=== PATIENT | female | born 1985 | race African-American/Black ===

== ENCOUNTER 2021-09-13 23:35 | Emergency (ER) | payer MEDICAID, OTHER ==
[~2021-09-13] VITALS: Ht 177.8 cm; Wt 100.0 kg
[~2021-09-13 23:35] MED LIST: FERR-43 PO; PREN-55 PO
[2021-09-14] MEDS ORDERED: DIPHENHYDRAMINE 50MG/ML VIAL IM ONE ×2 (03:15→03:30)
[2021-09-14] MEDS ORDERED: LORAZEPAM 2MG/ML CPJ IM ONE (03:15)
[2021-09-14] MEDS ORDERED: HALOPERIDOL LACTATE 5MG/ML VIAL IM ONE ×2 (03:15→03:30)
[2021-09-14 05:24] LABS: BASOPHILS % 0.9 % (0.0-2.0); EOSINOPHILS % 0.5 % (0.0-5.0); HEMOGLOBIN. 11.1 g/dL (12.0-16.0); LYMPHOCYTES % 20.8 % (20.0-50.0); MEAN CORPUSCULAR HEMOGLOBIN 22.8 pg (28.0-32.0); MEAN CORPUSCULAR VOLUME 73.9 fL (81.0-99.0); MEAN PLATELET VOLUME 8.1 fl (7.4-10.4); MONOCYTES % 9.8 % (2.0-8.0); PLATELET 345 x1000/uL (130-400); RED BLOOD CELL COUNT 4.86 mill/uL (4.2-5.4); RED CELL DISTRIBUTION WIDTH 21.7 % (11.6-14.6)
[2021-09-14 05:28] LABS: CHLORIDE 109 mEq/L (98-107)
[2021-09-14 05:35] LABS: ETHANOL BLOOD < 10 mg/dL
[2021-09-14 05:48] LABS: HCG SCREEN NEGATIVE
[2021-09-14 06:50] LABS: CLARITY URINE CLEAR (CLEAR); COLOR URINE DARK YELLOW (YELLOW); KETONES URINE 3+ (NEGATIVE); LEUKOCYTE ESTERASE URINE 2+ (NEGATIVE); NITRITE URINE NEGATIVE (NEGATIVE); OCCULT BLOOD URINE 2+ (NEGATIVE); PH URINE 5.5 (4.5-8.0); PROTEIN URINE 1+ (NEGATIVE); SPECIFIC GRAVITY URINE 1.026 (1.005-1.030)
[2021-09-14 07:12] LABS: *BARBITURATES SCREEN URINE NEGATIVE (NEGATIVE); *BENZODIAZEPINES SCREEN URINE NEGATIVE (NEGATIVE); *COCAINE SCREEN URINE NEGATIVE (NEGATIVE)
[2021-09-14 07:13] LABS: METHADONE URINE SCREEN NEGATIVE (NEGATIVE); OPIATES URINE SCREEN NEGATIVE (NEGATIVE); PHENCYCLIDINE URINE SCREEN NEGATIVE (NEGATIVE)
[2021-09-14 07:49] LABS: *AMPHETAMINES SCREEN URINE PRESUMTIVE POSITIVE (NEGATIVE); CANNABINOID URINE SCREEN PRESUMTIVE POSITIVE (NEGATIVE)
[2021-09-14] MEDS: POTASSIUM CHLORIDE 20MEQ TABLET SR PO ONE ×2 (08:00→13:10)
[2021-09-14] MEDS ORDERED: OLANZAPINE 5MG TABLET PO SCH (17:00)
[2021-09-15 06:30] VITALS: BP 107/57
== END 2021-09-15 10:43 | disposition home or self-care (01) ==
LOC: ER 23:35
DX: R45.851 Suicidal ideations (principal); F22 Delusional disorders; Z20.822 Contact with and (suspected) exposure to COVID-19; Z75.1 Person awaiting admission to adequate facility elsewhere
CPT/HCPCS: 81025; 93005; 96372; 99285; J1200; J2060; J1630

== ENCOUNTER 2021-09-27 08:06 | Emergency (ER) | payer SELFPAY ==
[~2021-09-27] VITALS: Ht 172.7 cm; Wt 90.0 kg
[2021-09-27 08:10] VITALS: BP 133/78
[2021-09-27 09:05] LABS: CLARITY URINE TURBID (CLEAR); COLOR URINE YELLOW (YELLOW); KETONES URINE NEGATIVE (NEGATIVE); LEUKOCYTE ESTERASE URINE 3+ (NEGATIVE); NITRITE URINE NEGATIVE (NEGATIVE); OCCULT BLOOD URINE 3+ (NEGATIVE); PH URINE 6.5 (4.5-8.0); PROTEIN URINE 1+ (NEGATIVE); SPECIFIC GRAVITY URINE 1.015 (1.005-1.030)
[2021-09-27] MEDS ORDERED: AMOX-424 MT (10:23)
[2021-09-27] MEDS ORDERED: PYR200 MT (10:23)
== END 2021-09-27 10:36 | disposition home or self-care (01) ==
LOC: ER 08:12
DX: N39.0 Urinary tract infection, site not specified (principal)
CPT/HCPCS: 81003; 81025; 87077; 87186; 99283

== ENCOUNTER 2021-10-30 01:39 | Emergency (ER) | payer SELFPAY ==
[~2021-10-30] VITALS: Ht 170.2 cm; Wt 105.0 kg
[~2021-10-30 01:39] MED LIST changes: +AMOX-424 MT; +PYR200 MT
[2021-10-30 01:53] VITALS: BP 133/83
== END 2021-10-30 05:14 | disposition left against medical advice (07) ==
LOC: ER 01:39
DX: R44.0 Auditory hallucinations (principal)
CPT/HCPCS: 99281